=== PATIENT | male | born 1975 | race Caucasian/White ===

== ENCOUNTER → 2019-11-08 12:50 | Outpatient (CLI) | payer OTHER, SELFPAY ==
--- NOTE | 2019-11-08 12:58 | MR_ITS ---
PROCEDURE: MR SHOULDER RT W CON CLINICAL INDICATION: RT SHOULDER STRAIN, AND SHOULDER PAIN Right shoulder pain with limited range of motion COMPARISON: No exams were available for comparison TECHNIQUE: Routine multi planar multi echo sequences are performed following the intra-articular injection of gadolinium FINDINGS: There is no evidence of rotator cuff tear. There are hypertrophic changes of the acromioclavicular joint with mild subacromial stenosis of 5 mm. There does appear to be a SLAP tear of the glenoid labrum. No other significant anomalies are evident. Bicipital tendon is in place. There are few small subarticular cystic areas in the humeral head posteriorly. No other significant anomalies evident. IMPRESSION: 1. No evidence of rotator cuff tear. 2. Superior labral tear/slap lesion Dictated by: Rommel Maya MD 11/14/2019 09:17 Electronically signed by Rommel Maya MD in [place] 11/14/2019 09:17
--- NOTE | 2019-11-08 13:12 | IR_ITS ---
PROCEDURE: IR ARTHROGRAM SHOULDER RT CLINICAL INDICATION: RT SHOULDER PAIN COMPARISON: No exams were available for comparison FINDINGS: Technique: Following obtaining informed consent and time-out procedure under aseptic conditions using local anesthesia 1 percent buffered lidocaine and fluoroscopic guidance, 22 gauge needle was inserted via the anterior into the shoulder capsule along the humeral head superior medially. Approximately 10 cc of a mixture gadolinium, Optiray 320, and 1 percent lidocaine was injected into the joint. The patient tolerated the procedure well without evidence of immediate complication. The patient was then instructed to exercise the arm and images were then obtained. The patient tolerated the procedure well without evidence of immediate complication and was sent to MRI where MR arthrogram protocol is performed. Please see that report for further findings. Fluoroscopy time: 1 minutes and 6 seconds There was normal localization of contrast within the shoulder joint with no evidence of rotator cuff tear. IMPRESSION: No evidence of rotator cuff tear. Please see MR report for further details Dictated by: Rommel Maya MD 11/14/2019 09:01 Electronically signed by Rommel Maya MD in [place] 11/14/2019 09:01
== END ==
PROVIDERS: PCP Internal Medicine Addiction Medicine
DX: M25.511 Pain in right shoulder (principal); S46.811A Strain of other muscles, fascia and tendons at shoulder and upper arm level, right arm, initial encounter
CPT/HCPCS: 73040; 73222; Q9967